=== PATIENT | female | born 1950 | race Caucasian/White ===

== ENCOUNTER 2020-10-11 10:44 | Inpatient (IN) | payer MEDICARE ==
[~2020-10-11] VITALS: Ht 162.6 cm; Wt 86.0 kg
[2020-10-11 11:29] LABS: BASOPHILS % (AUTO) 1 % (0-1); EOSINOPHILS % (AUTO) 2 % (1-7); LYMPHOCYTES % (AUTO) 35 % (22-44); MEAN CORPUSCULAR HEMOGLOBIN 31.3 pg (27.0-34.8); MEAN CORPUSCULAR HGB CONC 34.7 g/dL (32.4-35.8); MEAN PLATELET VOLUME 8.9 fL (7.4-10.4); MONOCYTES % (AUTO) 9 % (2-9); NEUTROPHILS % (AUTO) 53 % (42-75); PLATELET COUNT 210 x10^3/uL (130-400); RED BLOOD COUNT 4.51 x10^6/uL (3.82-5.3); RED CELL DISTRIBUTION WIDTH 13.3 % (9.6-15.2)
[2020-10-11] MEDS ORDERED: SODIUM CHLORIDE FLUSH 10ML SYR IVF ONE (11:30)
[2020-10-11] MEDS ORDERED: DILTIAZEM 5 MG/ML, 5ML IV ONE (11:30)
[2020-10-11 11:34] LABS: MD NO
[2020-10-11 11:41] LABS: ALBUMIN 4.2 g/dL (3.4-5.0); ANION GAP 7 mmol/L (5-15); CALCIUM 9.5 mg/dL (8.5-10.1); CHLORIDE 108 mmol/L (98-107)
[2020-10-11] MEDS ORDERED: DILTIAZEM 5 MG/ML, 5ML ONE (11:42)
[2020-10-11 11:49] LABS: ALANINE AMINOTRANSFERASE 29 U/L (12-78); ALKALINE PHOSPHATASE 93 U/L (45-117); BILIRUBIN,TOTAL 1.1 mg/dL (0.2-1.0); CREATININE 0.81 mg/dL (0.55-1.02); TOTAL PROTEIN 7.4 g/dL (6.4-8.2); TROPONIN I < 0.015 ng/mL (0.000-0.045)
--- NOTE | 2020-10-11 12:09 | NUR ---
PT STATES SHE FEELS BETTER AFTER MEDS. HR 94. NOTIFIED.
--- NOTE | 2020-10-11 12:21 | NUR ---
FORK REPAIRER AT BEDSIDE FOR REPEAT EKG.
[2020-10-11] MEDS ORDERED: METOCLOPRAMIDE 5 MG/ML, 2ML IVPush PRN (13:00)
[2020-10-11] MEDS ORDERED: ACETAMINOPHEN 325 MG TABLET PO PRN (13:00)
[2020-10-11] MEDS ORDERED: TRAZODONE 50MG TABLET PO PRN (13:00)
[2020-10-11] MEDS ORDERED: ASPI81TA45 PO (13:12)
[2020-10-11] MEDS ORDERED: HYDR12.517 PO (13:12)
[2020-10-11] MEDS ORDERED: LOSA100T14 PO (13:12)
[2020-10-11] MEDS ORDERED: ESOM20CA PO (13:12)
--- NOTE | 2020-10-11 13:13 | NUR ---
PT TO BE ADMIT. PT RESTING COMFORTABLY ON GURNEY. NADN. PT CONNECTED TO MONITORING. MED REC COMPLETE.
--- NOTE | 2020-10-11 14:18 | NUR ---
DIET NEALY DELIVERED. PT APPRECIATIVE.
--- NOTE | 2020-10-11 14:56 | NUR ---
REPORT GIVEN TO ZIA VOGEL. PT RTG TO ROOM 515
[2020-10-11 15:16] VITALS: BP 158/82
[2020-10-11] MEDS: RIVAROXABAN 20 MG TABLET PO SCH (17:10)
[2020-10-11] MEDS ORDERED: OMNIPAQUE 350 MG/ML, 100ML BOTTLE ONE (18:00)
[2020-10-11 20:46] VITALS: BP 157/100
[2020-10-11] MEDS ORDERED: METOPROLOL TARTRATE 25 MG TAB PO SCH (21:00)
[2020-10-12] VITALS (7 sets, daily range): BP systolic 129–148; BP diastolic 75–100
[2020-10-12] MEDS ORDERED: FUROSEMIDE 20 MG TABLET PO SCH (08:30)
[2020-10-12] MEDS: METOPROLOL TARTRATE 25 MG TAB PO SCH ×2 (08:56→21:32)
[2020-10-12] MEDS: POTASSIUM CHLORIDE 20 MEQ TAB.ER.PRT PO SCH ×2 (08:56→17:33)
[2020-10-12] MEDS: SENNA/DOCUSATE TABLET PO SCH (08:59)
[2020-10-12] MEDS: PANTOPRAZOLE 40MG TABLET PO SCH (09:43)
[2020-10-12] MEDS ORDERED: NITROGLYCERIN 0.4 MG BOTTLE (25 TABS) SL ONE (15:27)
[2020-10-12] MEDS ORDERED: NITROGLYCERIN 0.4 MG/SPRAY SL PRN (15:30)
[2020-10-12] MEDS ORDERED: NITROGLYCERIN 0.4 MG BOTTLE (25 TABS) SL PRN (15:30)
[2020-10-12 16:47] LABS: TROPONIN I < 0.015 ng/mL (0.000-0.045)
[2020-10-12] MEDS: FUROSEMIDE 40 MG/4 ML IV SCH (17:33)
[2020-10-12] MEDS: RIVAROXABAN 20 MG TABLET PO SCH (17:33)
[2020-10-13 01:47] VITALS: BP 122/77
[2020-10-13 05:45] LABS: CALCIUM 9.2 mg/dL (8.5-10.1); CHLORIDE 106 mmol/L (98-107)
[2020-10-13 05:49] LABS: ANION GAP 7 mmol/L (5-15); CREATININE 0.87 mg/dL (0.55-1.02)
[2020-10-13] MEDS: PANTOPRAZOLE 40MG TABLET PO SCH (06:34)
[2020-10-13] MEDS: FUROSEMIDE 40 MG/4 ML IV SCH ×2 (06:36→16:45)
[2020-10-13 06:39] VITALS: BP 129/78
[2020-10-13] MEDS ORDERED: METOLAZONE 5 MG TABLET PO SCH (07:30)
[2020-10-13] MEDS: SENNA/DOCUSATE TABLET PO SCH (08:12)
[2020-10-13] MEDS: POTASSIUM CHLORIDE 20 MEQ TAB.ER.PRT PO SCH (08:12)
[2020-10-13] MEDS ORDERED: REGADENOSON 0.4 MG/5 ML SYRINGE ONE (08:39)
[2020-10-13] MEDS: METOPROLOL TARTRATE 25 MG TAB PO SCH (10:27)
[2020-10-13 10:28] VITALS: BP 110/65
[2020-10-13 13:19] VITALS: BP 112/73
[2020-10-13] MEDS ORDERED: POTA20TA14 PO (15:32)
[2020-10-13] MEDS ORDERED: METO100T5 PO (15:32)
[2020-10-13] MEDS ORDERED: FURO20TA3 PO (15:32)
[2020-10-13] MEDS ORDERED: RIVA20TA PO (15:32)
[2020-10-13] MEDS: RIVAROXABAN 20 MG TABLET PO SCH (16:45)
== END 2020-10-13 17:04 | disposition home or self-care (01) | DRG 189 ==
LOC: SUATTDRO 12:47 → ED 13:53 → 5SO 15:13 → OBSVTOIN 15:13 → INTOOBSV 15:13
PROVIDERS: ADMIT Internal Medicine; ATTEND Internal Medicine
DX: J96.01 Acute respiratory failure with hypoxia (principal); J90 Pleural effusion, not elsewhere classified; I48.0 Paroxysmal atrial fibrillation; E66.9 Obesity, unspecified; Z86.16 Personal history of COVID-19; I10 Essential (primary) hypertension; R79.1 Abnormal coagulation profile; Z79.82 Long term (current) use of aspirin; Z83.3 Family history of diabetes mellitus; Z90.710 Acquired absence of both cervix and uterus; Z98.42 Cataract extraction status, left eye; Z68.32 Body mass index [BMI] 32.0-32.9, adult
CPT/HCPCS: 36415; 71045; 71275; 78452; 80048; 80053; 83036; 83735; 83880; 84443; 84484; 85025; 85379; 93005; 93017; 93306; 96374; 99285; G0378; J1940; J2785; Q9967; A9502; J2765